=== PATIENT | female | born 1990 | race Caucasian/White ===

== ENCOUNTER 2016-08-08 19:10 | Emergency (ER) | payer BC ==
[2016-08-08] MEDS ORDERED: SODIUM CHLORIDE 0.9% 1,000 ML IV STA (19:34)
[2016-08-08] MEDS ORDERED: METOCLOPRAMIDE 5 MG/ML 2 ML VIAL IVP STA (19:34)
[2016-08-08] MEDS ORDERED: SODIUM CHLORIDE 0.9% 500 ML IV STA (19:34)
--- NOTE | 2016-08-08 19:42 | ED ---
General Adult HPI - General Chief complaint: Headache Stated complaint: Fever/Vomiting Time Seen by Provider: 08/08/16 19:23 Source: patient, family, RN notes reviewed Mode of arrival: wheelchair Limitations: no limitations - History of Present Illness Initial comments: Chief complaint and history of present illness a 26-year-old female complaint of posterior headache ongoing since earlier today. Nausea no vomiting. She had diarrhea yesterday. Patient reports she has to migraine type headaches a month usually due to stress because of the job. 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 Patient denies any further. Patient states she had a positive home test and thinks she is 5 weeks . Yesterday she had some spotting. - Related Data Home Medications Medication Instructions Recorded Confirmed Pnv with Ca,No.72/Iron/FA 1 tab PO DAILY 08/08/16 08/08/16 [ Plus Tablet] Allergies Allergy/AdvReac Type Severity Reaction Status Date / Time No Known Allergies Allergy Verified 08/08/16 19:31 Review of Systems ROS Statement: Those systems with pertinent positive or pertinent negative responses have been documented in the HPI. Review of systems patient has headache but no photophobia. Nausea no vomiting no stiff neck. No chest pain or shortness of breath. The patient had left lower quadrant discomfort earlier today she had small amount of spotting vaginally yesterday. She states she thinks is 5 weeks had a positive home test. Diarrhea yesterday. Nausea but not vomiting. All systems reviewed. Past problems 2 para 11 miscarriage. The patient's family history cancers include cervical, breast and lung and kidney. Patient surgeries include 1 she's had breast augmentation and a D&C. Otherwise denies any other medical problems other than twice monthly migraine type headaches. She really takes Tylenol for these. Patient denies ALLERGIES nonsmoker nondrinker. ROS Other: All systems not noted in ROS Statement are negative. Past Medical History Additional Past Medical History / Comment(s): born with only 1 kidney History of Any Multi-Drug Resistant Organisms: None Reported Past Surgical History: Section Additional Past Surgical History / Comment(s): d & c breast augmentation Past Psychological History: No Psychological Hx Reported Smoking Status: Never smoker Past Alcohol Use History: None Reported Past Drug Use History: None Reported General Exam - General Exam Comments Initial Comments: General: The patient is awake and alert, complaining of a posterior occipital area headache. With nausea no vomiting. Vital signs show temperature 98.9 pulse 82 respiratory rate 16 pulse ox 90% room air blood pressure 140/70 Eye: Pupils are equal, round and reactive to light, extra-ocular movements are intact ; there is normal conjunctiva bilaterally. No signs of icterus. Ears, nose, mouth and throat: There are moist mucous membranes and no oral lesions. Neck: The neck is supple, there is no tenderness . No meningeal irritation no meningismus.. Cardiovascular: There is a regular rate and rhythm. No murmur, rub or gallop is appreciated. Respiratory: Lungs are clear to auscultation, respirations are non-labored, breath sounds are equal. No wheezes, stridor, rales, or rhonchi. Gastrointestinal: Soft, non-distended, non-tender abdomen without masses or organomegaly noted. There is no rebound or guarding present. No CVA tenderness. Bowel sounds are unremarkable. Patient had left lower quadrant discomfort earlier today and states she had a small amount of vaginal bleeding yesterday spotting. Back: There is no tenderness to palpation in the midline. There is no obvious deformity. No rashes noted. Musculoskeletal: Normal ROM, no tenderness, There is no pedal edema. There is no calf tenderness or swelling. Sensation intact. Pulses equal bilaterally 2+. Neurological: No evidence or complaints of any neuro deficits. Skin: Skin is warm and dry and no rashes or lesions are noted. Limitations: no limitations Course Vital Signs 08/08/16 08/08/16 19:15 21:30 Temperature 98.9 F 97.9 F Pulse Rate 82 Respiratory 16 Rate Blood Pressure 140/70 O2 Sat by Pulse 98 Oximetry Medical Decision Making - Medical Decision Making The patient's urine is clean no signs of infection. Influenza AB test reported to be negative by laboratory. Vaginal examination done with the help of broke. Cervix is closed, no blood noted. No adnexal tenderness. At this time the patient has decided not to have an ultrasound. She will be following up with her GEOMORPHOLOGIST shortly. We discussed the significance of a positive beta. Vaginal examination did not reveal any blood on the osseous closed. No pain in the left adnexa at this time. Possibility of miscarriage or threatened miscarriage and/or ectopic was discussed with the patient. Ultrasound offered patient declined states she'll have this done with her GEOMORPHOLOGIST. She thinks a discomfort to the left lower quadrant was due to her being busy at work and extra effort being put into her job. We discussed threatened miscarriage or incomplete but again no blood was noted in the vault and just slightly pink at the cervical os - Lab Data Lab Results 08/08/16 08/08/16 08/08/16 Range/Units 19:50 20:10 21:25 HCG, Quant 3324.0 mIU/mL Urine Color Light Yellow Urine Appearance Clear (Clear) Urine pH 6.5 (5.0-8.0) Ur Specific [place] 1.004 (1.001-1.035) Urine Protein Negative (Negative) Urine Glucose (UA) Negative (Negative) Urine Ketones 1+ H (Negative) Urine Blood Negative (Negative) Urine Nitrate Negative (Negative) Urine Bilirubin Negative (Negative) Urine Urobilinogen <2.0 (<2.0) mg/dL Ur Leukocyte Esterase Negative (Negative) Influenza Type A RNA Not Detected (Not Detectd) Influenza Type B (PCR) Not Detected (Not Detectd) Disposition Clinical Impression: Headache, First trimester Disposition: HOME SELF-CARE Condition: Fair Instructions: Acute Headache (ED), (ED) Referrals: Henry Chung MD [Primary Care Provider] - 1-2 days Time of Disposition: 22:11
[2016-08-08 20:31] LABS: Appearance,Urine Clear (Clear); Bilirubin,Urine Negative (Negative); Glucose,Urine (UA) Negative (Negative); Ketones,Urine 1+ (Negative); Leukocyte Esterase,Urine Negative (Negative); Nitrite,Urine Negative (Negative); PH, Urine 6.5 (5.0-8.0); Protein,Urine Negative (Negative); Specific Gravity,Urine 1.004 (1.001-1.035); UA Billing (MACRO vs. MICRO) CHEM; Urobilinogen,Urine <2.0 mg/dL (<2.0)
[2016-08-08 21:32] VITALS: TEMP 97.9
[2016-08-08 22:29] VITALS: BP 128/70; PULSE 70; RESP 14
== END 2016-08-08 22:27 | disposition home or self-care (01) ==
LOC: EC 19:10
DX: O99.89 Other specified diseases and conditions complicating pregnancy, childbirth and the puerperium (principal); R51 Headache; R11.0 Nausea; R19.7 Diarrhea, unspecified; Z3A.01 Less than 8 weeks gestation of pregnancy; Z79.899 Other long term (current) drug therapy
CPT/HCPCS: 36415; 81003; 84702; 87502; 99283; 96374; 96361 ×2; J2765

== ENCOUNTER 2017-01-09 14:32 | Outpatient (CLI) | payer OTHER, BC ==
[2017-01-09 14:52] LABS: Appearance,Urine Clear (Clear); Bilirubin,Urine Negative (Negative); Glucose,Urine (UA) Negative (Negative); Ketones,Urine Negative (Negative); Leukocyte Esterase,Urine Negative (Negative); Nitrite,Urine Negative (Negative); PH, Urine 6.5 (5.0-8.0); Protein,Urine Negative (Negative); Specific Gravity,Urine 1.003 (1.001-1.035); UA Billing (MACRO vs. MICRO) CHEM; Urobilinogen,Urine <2.0 mg/dL (<2.0)
[2017-01-09 15:39] VITALS: BP 124/78; PULSE 76; RESP 16; TEMP 97.6
--- NOTE | 2017-01-09 18:48 | P.MSEPDOC ---
Presenting Problems - Arrival Data Date of Arrival on Unit: 01/09/17 Time of Arrival on Unit: 14:18 Mode of Transport: Wheelchair - Complaint OB-Reason for Admission/Chief Complaint: Pain Comment: lower abd, shooting pain Medical History - Information : 4 Para: 1 Term: 1 : 0 Abortions: Spontaneous or Elective: 0 Number of Living Children: 1 - Gestational Age Expected Date of Delivery: 04/09/17 Gestational Age by ELIAS (wks/days): 27 Weeks and 1 Days - History Complications: Prior Review of Systems - Review of Systems Constitutional: No problems Breast: No problems ENT: No problems Cardiovascular: No problems Respiratory: No problems Gastrointestinal: No problems Genitourinary: No problems Musculoskeletal: No problems Neurological: No problems Skin: No problems Vital Signs - Temperature Temperature: 97.6 F Temperature Source: Temporal Artery Scan - Pulse Right Sitting Brachial Pulse Rate: 76 Pulse Assessment Method: Automatic Cuff - Respirations Respiratory Rate: 16 Oxygen Delivery Method: Room Air O2 Sat by Pulse Oximetry: 98 - Blood Pressure Right Arm Sitting Blood Pressure: 124/78 Blood Pressure Mean: 93 Blood Pressure Source: Automatic Cuff Medical Screen Scoring (Pre) - Cervical Exam Dilation: Exam Deferred Effacement: Exam Deferred Membranes: Intact - Uterine Contractions Frequency: N/A Duration: N/A Intensity: N/A - Maternal Vital Signs Maternal Temperature: N/A Maternal Blood Pressure: N/A Maternal Respirations: N/A - Maternal Trauma Maternal Trauma: N/A - Assessment Baseline FHR: 150 Heart Rate - NICHD Category: Category I (Normal) = 0 Position: N/A Station: N/A - Total Score Total Score (Pre): 0 - Level of Risk Level of Risk: N/A Physician Notification (Pre) - Physician Notified Physician Notified Date: 01/09/17 Physician Notified Time: 14:41 Physician/Practitioner Notifed:: dr roach New Order Received: Yes Disposition - Disposition Discharge Date: 01/09/17 Discharge Time: 15:26 I agree with the RN Medical Screening Exam: Yes Risk & Benefit of care provided described in d/c instruction: No Risk & Benefit of Care Comment: No documentation of discharge instructions. 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 Diagnosis: 27 WEEKS GESTATION OF
== END 2017-01-09 15:26 | disposition home or self-care (01) ==
LOC: FBPOP 14:32
PROVIDERS: ATTEND Obstetrics & Gynecology
DX: O99.89 Other specified diseases and conditions complicating pregnancy, childbirth and the puerperium (principal); R10.30 Lower abdominal pain, unspecified; Z3A.27 27 weeks gestation of pregnancy
CPT/HCPCS: 81003; G0463; 99213

== ENCOUNTER 2017-05-21 23:10 | Inpatient (IN) | payer MEDICAID, OTHER ==
--- NOTE | 2017-05-21 23:34 | ED ---
General Adult HPI - General Chief complaint: Psychiatric Symptoms Stated complaint: Time Seen by Provider: 05/21/17 23:25 Source: patient, RN notes reviewed Mode of arrival: ambulatory Limitations: no limitations - History of Present Illness Initial comments: 26 yo female presents emergency Department was about 2 months presents with depression and suicidal thoughts. She states that it on and off depending on the day. She has thoughts of hurting herself. She states that she will have dreams about what to do. This time she does not have a specific plan. Patient states this is her second she had no complications with her first . She states the child has had some issues gaining weight and was born premature. She denies any health concerns. Patient denies any recent fever, chills, shortness of breath, chest pain, back pain, abdominal pain, nausea vomiting, numbness or tingling, dysuria or hematuria, constipation or diarrhea, headaches or visual changes, or any other current symptoms. - Related Data Home Medications Medication Instructions Recorded Confirmed Pnv,Calcium 72/Iron/Folic Acid 1 tab PO DAILY 08/08/16 01/09/17 [ Plus Tablet] Allergies Allergy/AdvReac Type Severity Reaction Status Date / Time No Known Allergies Allergy Verified 05/21/17 23:24 Review of Systems ROS Statement: Those systems with pertinent positive or pertinent negative responses have been documented in the HPI. ROS Other: All systems not noted in ROS Statement are negative. Past Medical History Additional Past Medical History / Comment(s): born with only 1 kidney History of Any Multi-Drug Resistant Organisms: None Reported Past Surgical History: Section Additional Past Surgical History / Comment(s): d & c breast augmentation Past Psychological History: No Psychological Hx Reported Smoking Status: Never smoker Past Alcohol Use History: None Reported Past Drug Use History: None Reported General Exam Limitations: no limitations General appearance: alert, in no apparent distress Neck exam: Present: normal inspection. Absent: tenderness, meningismus, lymphadenopathy Respiratory exam: Present: normal lung sounds bilaterally. Absent: respiratory distress, wheezes, rales, rhonchi, stridor Cardiovascular Exam: Present: regular rate, normal rhythm, normal heart sounds. Absent: systolic murmur, diastolic murmur, rubs, gallop, clicks Neurological exam: Present: alert, oriented X3 Psychiatric exam: Present: depressed, suicidal ideation. Absent: homicidal ideation Skin exam: Present: warm, dry, intact, normal color. Absent: rash Course Vital Signs 05/21/17 23:20 Temperature 98.5 F Pulse Rate 77 Respiratory 18 Rate Blood Pressure 182/87 O2 Sat by Pulse 99 Oximetry Medical Decision Making - Medical Decision Making 26-year-old female presents to the emergency department with a chief complaint of suicidal ideation and concern for depression. At this time the patient is cleared to be evaluated by psychiatry. At this time the patient has been evaluated and they are recommending admission. This time patient will be admitted for psychiatric care. Patient is agreement this plan. Disposition Clinical Impression: Depression Disposition: TRANSFER TO PSYCH HOSP/UNIT Referrals: None,Stated [Primary Care Provider] - 1-2 days
[2017-05-22] MEDS ORDERED: LORazepam 1 MG TAB PO PRN (03:14)
[2017-05-22] MEDS ORDERED: MAGNESIUM HYDROXIDE 2,400 MG/10 ML CUP PO PRN (03:14)
[2017-05-22] MEDS ORDERED: ACETAMINOPHEN TAB 325 MG TAB PO PRN (03:14)
[2017-05-22] MEDS ORDERED: MAG HYDROX/AL HYDROX/SIMETH 30 ML CUP PO PRN (03:14)
--- NOTE | 2017-05-22 03:45 | P.MDCNMH ---
History of Present Illness H&P Date: 05/22/17 Chief Complaint: Depression with suicidal thoughts 26 yo female presents emergency Department was about 2 months presents with depression and suicidal thoughts. She states that it on and off depending on the day. She has thoughts of hurting herself. She states that she will have dreams about what to do and other dreams about a car running over her son. She does not have a specific plan for suicide at this point in time. Patient states this only happened during her second and she had no complications with her first . She states the second child was born premature and has had some issues gaining weight since he was born. Patient did not have any issues with anxiety and depression before the second and she never took any medicine for any of this condition. She denies any other health concerns. No recent illness, no cough no shortness of breath, no pain, no urinary symptoms, no diarrhea or nausea or vomiting. Review of Systems 12 point review of system was performed, negative except for HPI Past Medical History Past Medical History: No Reported History (No history of depression or anxiety in the family) Additional Past Medical History / Comment(s): born with only 1 kidney History of Any Multi-Drug Resistant Organisms: None Reported Past Surgical History: Section Additional Past Surgical History / Comment(s): d & c breast augmentation Smoking Status: Never smoker Medications and Allergies Home Medications Medication Instructions Recorded Confirmed Type Pnv,Calcium 72/Iron/Folic Acid 1 tab PO DAILY 08/08/16 01/09/17 History [ Plus Tablet] Allergies Allergy/AdvReac Type Severity Reaction Status Date / Time No Known Allergies Allergy Verified 05/21/17 23:24 Physical Exam Vitals: Vital Signs Temp Pulse Resp BP Pulse Ox 05/21/17 23:20 98.5 F 77 18 182/87 99 Intake and Output 05/21/17 05/21/17 05/22/17 14:59 22:59 06:59 Other: Weight 64.41 kg Patient Weight 05/22/17 06:59 Weight 64.41 kg Constitutional: No acute distress, conversant, pleasant Eyes:Anicteric sclerae, moist conjunctiva, no lid-lag, PERRLA, ENMT: Oropharynx clear, no erythema, exudates Neck: Supple, FROM, no masses, or JVD, No carotid bruits, No thyromegaly Lungs: Clear to auscultation, Clear to percussion, Normal respiratory effort, no accessory muscle use Cardiovascular: Heart regular in rate and rhythm, No murmurs, gallops, or rubs, No peripheral edema Abdominal: Soft, Nontender, no guarding, rebound or rigidity, Normoactive bowel sounds, No hepatomegaly, No splenomegaly, No palpable mass Skin: Normal temperature, tone, texture, turgor, no induration, No subcutaneous nodules, No rash, lesions, No ulcers Extremities: No digital cyanosis, No clubbing, Pedal pulses intact and symmetrical, Radial pulses intact and symmetrical, No calf tenderness Psychiatric: Alert and oriented to person, place and time, appropriate affect, intact judgement Neuro: Muscles Strength 5/5 in all 4 extremities, Sensation to light touch grossly present throughout, Cranial nerves II-XII grossly intact, no focal sensory deficits Cranial Nerve Examination - Cranial Nerves Cranial Nerve II- Optic: Intact Cranial Nerve III- Oculomotor: Intact Cranial Nerve IV- Trochlear: Intact Cranial Nerve V- Trigeminal: Intact Cranial Nerve - Abducens: Intact Cranial Nerve VII- Facial: Intact Cranial Nerve VIII- Auditory: Intact Cranial Nerve IX- Glossopharyngeal: Intact Cranial Nerve X- Vagus: Intact Cranial Nerve XI- Accessory: Intact Cranial Nerve XII- Hypoglossal: Intact Assessment and Plan Plan: #1 Suicidal thoughts, severe depression and anxiety symptoms, likely depression: Management per psychiatry Suicide precautions #2 health-maintenance: No indication for any medical testing or treatment at this point
[2017-05-22 03:46] VITALS: BMI 25.5
[2017-05-22 08:27] LABS: Basophils % (A) 1 %; CH 29.4; CHCM 33.5; Eosinophils # (A) 0.1 k/uL (0-0.7); Eosinophils % (A) 2 %; HCT 39.3 % (34.0-46.0); HDW 2.57; Luc # (Auto) 0.15; Luc % (Auto) 2; Lymphocytes # (A) 2.7 k/uL (1.0-4.8); Lymphocytes % (A) 39 %; MCH 29.1 pg (25.0-35.0); MCHC 33.1 g/dL (31.0-37.0); MCV 87.9 fL (80.0-100.0); Mean Platelet Volume 7.1; Monocytes # (A) 0.4 k/uL (0-1.0); Monocytes % (A) 5 %; Neutrophils # (A) 3.6 k/uL (1.3-7.7); Neutrophils % (A) 52 %; RBC 4.47 m/uL (3.80-5.40); RDW 13.2 % (11.5-15.5); WBC (Perox) 7.09
[2017-05-22 08:34] LABS: ALT 29 U/L (9-52); AST 17 U/L (14-36); Alkaline Phosphatase 58 U/L (38-126); Anion Gap 9 mmol/L; Blood Urea Nitrogen 11 mg/dL (7-17); Calcium 9.5 mg/dL (8.4-10.2); Carbon Dioxide 24 mmol/L (22-30); Chloride 107 mmol/L (98-107); Glucose 77 mg/dL (74-99); Non-African American GFR(MDRD) >60 (>60 ml/min/1.73 sqM); Potassium 3.9 mmol/L (3.5-5.1); Sodium 140 mmol/L (137-145); Total Bilirubin 0.6 mg/dL (0.2-1.3)
[2017-05-22] MEDS: PRENATAL VIT-IRON-FOLIC ACID 1 EACH CAP PO SCH (12:19)
[2017-05-22] MEDS ORDERED: SERTRALINE 50 MG TAB PO SCH (16:00)
--- NOTE | 2017-05-22 16:08 | P.HP ---
Psychiatric H&P - . H&P Date: 05/22/17 History & Physical: Allergies Allergy/AdvReac Type Severity Reaction Status Date / Time No Known Allergies Allergy Verified 05/22/17 07:50 Vital Signs Temp 97.1 F L 05/22/17 03:38 Pulse 79 05/22/17 03:38 Resp 16 05/22/17 03:38 BP 128/83 05/22/17 03:38 Pulse Ox 99 05/22/17 03:38 Intake & Output 05/21/17 05/22/17 05/22/17 18:59 06:59 18:59 Weight 65.516 kg Laboratory Last Values WBC 7.0 k/uL (3.8-10.6) 05/22/17 07:37 RBC 4.47 m/uL (3.80-5.40) 05/22/17 07:37 Hgb 13.0 gm/dL (11.4-16.0) 05/22/17 07:37 Hct 39.3 % (34.0-46.0) 05/22/17 07:37 MCV 87.9 fL (80.0-100.0) 05/22/17 07:37 MCH 29.1 pg (25.0-35.0) 05/22/17 07:37 MCHC 33.1 g/dL (31.0-37.0) 05/22/17 07:37 RDW 13.2 % (11.5-15.5) 05/22/17 07:37 Plt Count 291 k/uL (150-450) 05/22/17 07:37 Neutrophils % 52 % 05/22/17 07:37 Lymphocytes % 39 % 05/22/17 07:37 Monocytes % 5 % 05/22/17 07:37 Eosinophils % 2 % 05/22/17 07:37 Basophils % 1 % 05/22/17 07:37 Neutrophils # 3.6 k/uL (1.3-7.7) 05/22/17 07:37 Lymphocytes # 2.7 k/uL (1.0-4.8) 05/22/17 07:37 Monocytes # 0.4 k/uL (0-1.0) 05/22/17 07:37 Eosinophils # 0.1 k/uL (0-0.7) 05/22/17 07:37 Basophils # 0.0 k/uL (0-0.2) 05/22/17 07:37 Sodium 140 mmol/L (137-145) 05/22/17 07:37 Potassium 3.9 mmol/L (3.5-5.1) 05/22/17 07:37 Chloride 107 mmol/L (98-107) 05/22/17 07:37 Carbon Dioxide 24 mmol/L (22-30) 05/22/17 07:37 Anion Gap 9 mmol/L 05/22/17 07:37 BUN 11 mg/dL (7-17) 05/22/17 07:37 Creatinine 0.69 mg/dL (0.52-1.04) 05/22/17 07:37 Est GFR (MDRD) Af Amer >60 (>60 ml/min/1.73 sqM) 05/22/17 07:37 Est GFR (MDRD) Non-Af >60 (>60 ml/min/1.73 sqM) 05/22/17 07:37 Glucose 77 mg/dL (74-99) 05/22/17 07:37 Calcium 9.5 mg/dL (8.4-10.2) 05/22/17 07:37 Total Bilirubin 0.6 mg/dL (0.2-1.3) 05/22/17 07:37 AST 17 U/L (14-36) 05/22/17 07:37 ALT 29 U/L (9-52) 05/22/17 07:37 Alkaline Phosphatase 58 U/L (38-126) 05/22/17 07:37 Total Protein 7.0 g/dL (6.3-8.2) 05/22/17 07:37 Albumin 4.2 g/dL (3.5-5.0) 05/22/17 07:37 TSH 1.410 mIU/L (0.465-4.680) 05/22/17 07:37 05/22/17 15:51 IDENTIFYING DATA: 26-year-old female patient HPI: Patient admitted to the inpatient psychiatric unit [facility] on a voluntary basis. She was admitted with depression and concern regarding thoughts of suicide. She says she's had depression since her second son was born. She says it was a traumatic because she had preeclampsia and dumb had an emergency at 37 weeks. She reports that she was not able to go to her counseling is frequently and over the last week or so she's had increased depression on her she's felt depressed daily and minimal interest in things. She says even things like doing the dishes seemed overwhelming to her and she just feels blah and feels like a mitchell blob. She denies thoughts of harm to herself or thoughts of suicide but did imagine herself and also has been having dreams of her oldest son being hit by a car. She denies having had actual thoughts about being better off gone. She said she's had a hard time even functioning. She says another stressor is that she had to stop breast-feeding because her son was not gaining weight. Another stressor was that they had recently moved and she was 6-1/2 months and was placed on bedrest for their houses not totally in place and also that she had dog found out after she had her baby that her boyfriend had cheated on her. She says things currently in the relationship are going well overall. PAST PSYCHIATRIC HISTORY: She did not have any depression after her first child, no history of depression. She has been recently going to outpatient [facility] [place]. She has never taken any antidepressants. She does admit to some history of social anxiety as well as recently increased worry. She denies any history of suicide attempts. PMH: Her first delivery she also had preeclampsia. Preeclampsia with the second with the emergency ALLERGIES: No known ALLERGIES MEDICATIONS: Tylenol when necessary, Maalox when necessary, Ativan when necessary, milk of magnesia when necessary, vitamin CHEMICAL DEPENDENCY HISTORY: Denies FAMILY PSYCHIATRIC HISTORY: Denies FAMILY CHEMICAL DEPENDENCY HISTORY: None known at this time SOCIAL HISTORY: This is her second child. She currently lives with her boyfriend, 2 years relationship. First son is from her first marriage which ended in divorce. MENTAL STATUS EXAM: She is alert and cooperative with the interview. Her speech is fluent, not rapid or pressured. Thought processes are organized. Her mood is described as "good." She has positive thoughts towards her baby. She denies any thoughts of harm to her children or anyone. She denies any suicidal ideations. No evidence of psychosis. She cognitively appears to be grossly intact. I do not notice any memory disturbance or disorientation. Insight is adequate, judgment shows evidence of some recent impairment. STRENGTHS/WEAKNESSES: Strengths-support system, seeking treatment; weaknesses- coping skills INTELLECTUAL FUNCTIONING: Average IMPRESSIONS: Major depressive disorder single episode; social anxiety disorder; rule out generalized anxiety disorder PLAN: Patient is admitted to the inpatient psychiatric unit [facility] on a voluntary basis. She is placed on SP 15 minute precautions. She' ll participate group and activity therapies. Baseline laboratory workup will be done the patient medical consultation will be ordered. I will initiate her on Zoloft 50 more grams daily to help with depression and anxiety symptoms. We will look into support systems. Estimated length of stay will be 3-5 days. Prognosis is guarded.
[2017-05-22 18:11] LABS: Appearance,Urine Cloudy (Clear); Bilirubin,Urine Negative (Negative); Glucose,Urine (UA) Negative (Negative); Ketones,Urine Negative (Negative); Leukocyte Esterase,Urine Small (Negative); Mucus,Urine Occasional /hpf; Nitrite,Urine Negative (Negative); Particle Count 9371; Protein,Urine Trace (Negative); RBC,Urine 4 /hpf (0-5); Specific Gravity,Urine 1.019 (1.001-1.035); Squamous Epithelial Cell,Urine 9 /hpf (0-4); UA Billing (MACRO vs. MICRO) MICRO; Urobilinogen,Urine <2.0 mg/dL (<2.0); WBC,Urine 4 /hpf (0-5)
[2017-05-23 08:38] LABS: Appearance,Urine Cloudy (Clear); Bilirubin,Urine Negative (Negative); Glucose,Urine (UA) Negative (Negative); Ketones,Urine 1+ (Negative); Leukocyte Esterase,Urine Negative (Negative); Mucus,Urine Many /hpf; Nitrite,Urine Negative (Negative); Particle Count 17690; Protein,Urine 1+ (Negative); Specific Gravity,Urine 1.024 (1.001-1.035); Squamous Epithelial Cell,Urine 1 /hpf (0-4); UA Billing (MACRO vs. MICRO) MICRO; Urobilinogen,Urine <2.0 mg/dL (<2.0)
[2017-05-23] MEDS: PRENATAL VIT-IRON-FOLIC ACID 1 EACH CAP PO SCH (13:02)
[2017-05-23] MEDS: SERTRALINE 50 MG TAB PO SCH (13:03)
--- NOTE | 2017-05-23 15:05 | P.PN ---
Progress Note - Text Progress Note Date: 05/23/17 26yo CF admitted on 05/22/17 due worsening depression and suspected depression Last 24hrs: Patient states that "today I feel good". She appears to be in a good mood and with broad affect. Patient attributes this to her group attendance and realizing that other people are going through similar problems as she. Pt has been sleeping well on the unit. Denies SI and states that she has never had intent or plan of killing herself. Also denies thoughts of . States that that one instance of visualizing herself drowning scared her and her boyfriend, which is what prompted her presentation at the ED. She denies feelings of hopelessness. Some guilt about not being as present with her as she was with her first born. Does identify exercise as a positive outlet for her and has lately been having to force herself to go. States that she stopped seeing her therapist ~1 month ago due to problems with her insurance and feels that this was a major factor in her mood declining. On admission patient was found to have a (+) urine HCG; therefore a serum HCG was completed and her levels came back elevated >1000. OB services were consulted and reviewed her records; they confirmed that patient was indeed and recommended that her primary team inform her of the news. I did speak with patient and informed her that she is and she took the news well. She plans to f/u with her outpatient OB following discharge. MSE: Pt is alert and cooperative with the interview. Her speech is fluent with normal rate and volume. Thought processes are organized. Her mood is euthymic and affect broad. She has positive thoughts towards her children and unborn baby. She denies any thoughts of harm to her children or anyone. She denies any suicidal ideations. No evidence of psychosis. She cognitively appears to be grossly intact. I do not notice any memory disturbance or disorientation. Insight is adequate, judgment shows evidence of some recent impairment. ASSESSMENT: 1. Major depressive disorder, single episode with peripartum onset 2. h/o social anxiety disorder 3. r/o generalized anxiety disorder PLAN: patient's Zoloft was initially held this morning due to findings of (+) HCG. I did discuss the risks associated with use of SSRIs in , especially regarding use in third trimester. Patient vocalized understanding. She would like to stay on Zoloft for now to help with improvement in mood. Plans to discuss this further with her OB following discharge. Will continue Zoloft 50mg daily. Continue to monitor for safety. Encourage participation in group activities on the unit. Discuss discharge planning with treatment team. Possible DC on Tuesday.
[2017-05-24] MEDS: SERTRALINE 50 MG TAB PO SCH (08:33)
[2017-05-24] MEDS: PRENATAL VIT-IRON-FOLIC ACID 1 EACH CAP PO SCH (11:16)
--- NOTE | 2017-05-24 15:12 | P.PN ---
Subjective Progress Note Date: 05/24/17 Principal diagnosis: elevated HCG Patient is a 26-year-old female being seen in the mental health unit secondary to elevated hCG levels. Patient recently to her son approximately 8 weeks ago. She had a emergency secondary to preeclampsia. She reports that she stopped breast-feeding approximately 3 weeks ago and had one menstrual cycle. She has had sexual intercourse since that time. She had a urine hCG checked on admission which was positive. Serum hCG checked on 111 was 1175 and it approximately doubled in a 24-hour period to 2524.7. However yesterday she had some dark lightheaded and then subsequently had bright red blood one gush so approximately one pad. Since that point in time she has not had any bleeding. She reports that her period ended approximately one week ago. Objective - Vital Signs Vital signs: Vital Signs Temp 98.2 F 05/24/17 06:52 Pulse 69 05/24/17 06:52 Resp 14 05/24/17 06:52 BP 118/87 05/24/17 06:52 Pulse Ox 99 05/22/17 03:38 - Exam General: non toxic, no distress, appears at stated age Head: atraumatic, normocephalic, symmetric Eyes: EOMI, no lid lag, anicteric sclera Cardiovascular: S1S2 reg, no murmur, positive posterior tibial pulse bilateral, Lungs: CTA bilateral, no rhonchi, no rales , no accessory muscle use Psych: Alert, oriented, appropriate affect - Labs CBC & Chem 7: 05/22/17 07:37 05/22/17 07:37 Assessment and Plan Assessment: Elevated serum hCG level with uterine bleeding -Suspect threatened with spontaneous bleeding versus abnormal elevation of HCG -Discussed with nursing and she will have an appointment with her primary OB tomorrow Friday 05/25 at 10:30 in the morning for follow-up care. - Will need serial HCG levels. - monitor for recurrence of bleeding Nicotine for allowing us to participate in the care of this pleasant young female.
--- NOTE | 2017-05-24 23:14 | P.PN ---
Progress Note - Text Progress Note Date: 05/24/17 26yo CF admitted on 05/22/17 due worsening depression and suspected depression Last 24hrs: Patient states that her mood is "great". She has continued to attend and actively participate in group sessions on the unit. Last night she experienced some vaginal bleeding and their was some concern of possible miscarriage. OB was consulted and informed staff that their would be no further intervention needed if patient was in fact experiencing a miscarriage. She states bleeding has since stopped. Was seen by medical team today and according to staff there was some concern of possible retention of placenta fragments causing bleeding. Recommendation for patient to f/u with her OB-INTELLIGENCE AGENT as soon as possible and an appointment was made for tomorrow afternoon. Pt informed of this and in agreement with plan. No other reported complaints. MSE: Pt is alert and cooperative with the interview. Her speech is fluent with normal rate and volume. Thought processes are organized. Her mood is euthymic and affect broad. She denies any thoughts of harm to her children or anyone. She denies any suicidal ideations. No evidence of psychosis. She cognitively appears to be grossly intact. I do not notice any memory disturbance or disorientation. Insight is adequate, judgment shows evidence of some recent impairment. ASSESSMENT: 1. Major depressive disorder, single episode with peripartum onset 2. h/o social anxiety disorder 3. r/o generalized anxiety disorder PLAN: Continue Zoloft 50mg daily. Continue to monitor for safety. Encourage participation in group activities on the unit. Family meeting planned for this afternoon with her boyfreind. Plan DC tomorrow morning and f/u with OB-INTELLIGENCE AGENT that afternoon as scheduled.
[2017-05-25 07:20] VITALS: BP 112/65; PULSE 74; RESP 16; TEMP 98.8
[2017-05-25] MEDS: SERTRALINE 50 MG TAB PO SCH (08:53)
[2017-05-25] MEDS ORDERED: SERTRALINE 50 MG TAB PO SCH ×2 (09:00→23:59)
--- NOTE | 2017-05-25 09:11 | P.PN ---
Progress Note - Text Progress Note Date: 05/25/17 26yo CF admitted on 05/22/17 due worsening depression and suspected depression Last 24hrs: Patient states continued good mood and has bright affect. She has continued to attend and actively participate in group sessions on the unit. No more reported vaginal bleeding. Slept well last night. Compliant with medication and no reported adverse effects. Denies SI at this time. MSE: Pt is alert and cooperative with the interview. Her speech is fluent with normal rate and volume. Thought processes are organized. Her mood is euthymic and affect broad. She denies any thoughts of harm to her children or anyone. She denies any suicidal ideations. No evidence of psychosis. She cognitively appears to be grossly intact. I do not notice any memory disturbance or disorientation. Insight is adequate, judgment shows evidence of some recent impairment. ASSESSMENT: 1. Major depressive disorder, single episode with peripartum onset 2. h/o social anxiety disorder 3. r/o generalized anxiety disorder PLAN: Continue Zoloft 50mg daily. DC this morning. Patient to f/u with her OB- MAINTENANCE FITTER as scheduled at 1:15pm. Also, planning to re-establish care with her therapist Evelia and an appointment has been scheduled.
== END 2017-05-24 12:03 | disposition home or self-care (01) | DRG 754 ==
LOC: EC 23:10 → 3MHU 05-22 02:56
PROVIDERS: ADMIT Psychiatry & Neurology Psychiatry; ATTEND Psychiatry & Neurology Psychiatry
DX: F32.9 Major depressive disorder, single episode, unspecified (principal); R45.851 Suicidal ideations; F40.10 Social phobia, unspecified
CPT/HCPCS: 80053; 80306; 81001; 81025; 82075; 84443; 84702; 85025; 99285

== ENCOUNTER → 2020-01-01 | Outpatient (CLI) | payer BC | END | disposition home or self-care (01) | LOC: LABWHC1 09:00 | PROVIDERS: ATTEND Family Medicine | DX: R50.9 Fever, unspecified (principal) ==

== ENCOUNTER → 2021-01-19 | Outpatient (CLI) | payer BC ==
[2021-01-19 18:58] LABS: Basophils # (A) 0.09 X 10*3/uL (0.00-0.10); Basophils % (A) 1.1 %; Eosinophils # (A) 0.05 X 10*3/uL (0.04-0.35); Eosinophils % (A) 0.6 %; HCT 41.8 % (37.2-46.3); HGB 13.6 g/dL (12.0-15.0); Lymphocytes # (A) 2.71 X 10*3/uL (0.90-5.00); Lymphocytes % (A) 33.5 %; MCH 29.6 pg (27.0-32.0); MCHC 32.5 g/dL (32.0-37.0); MCV 90.9 fL (80.0-97.0); Mean Platelet Volume 10.7 fL (9.5-12.2); Monocytes # (A) 0.47 X 10*3/uL (0.20-1.00); Monocytes % (A) 5.8 %; Neutrophils # (A) 4.72 X 10*3/uL (1.80-7.70); Neutrophils % (A) 58.3 %; Platelet Count 298 X 10*3/uL (140-440); RDW 12.2 % (11.5-14.5)
[2021-01-19 19:41] LABS: African American GFR (CKD) 141.8 (60.0-200.0); Albumin 4.8 g/dL (3.80-4.90); Anion Gap 8.8 mmol/L (4.00-12.00); BUN/Creat Ratio 31.67 Ratio (12.00-20.00); Calcium 9.3 mg/dL (8.7-10.3); Carbon Dioxide 27.2 mmol/L (21.6-31.8); Globulin 2.4 g/dL (1.6-3.3); Non-African American GFR(CKD) 122.3 (60.0-200.0); Potassium 3.9 mmol/L (3.5-5.5); Total Bilirubin 0.4 mg/dL (0.3-1.2); Total Protein 7.2 g/dL (6.2-8.2)
== END | disposition home or self-care (01) ==
LOC: LABWHC1 11:38
PROVIDERS: ATTEND Obstetrics & Gynecology
DX: Z01.812 Encounter for preprocedural laboratory examination (principal); Z20.822 Contact with and (suspected) exposure to COVID-19; N87.9 Dysplasia of cervix uteri, unspecified
CPT/HCPCS: 80053; 85025; 36415; U0003; U0005

== ENCOUNTER → 2021-02-03 | Outpatient (CLI) | payer BC ==
[2021-02-03 14:45] LABS: HCT 45.2 % (37.2-46.3); HGB 14.4 g/dL (12.0-15.0); MCH 28.9 pg (27.0-32.0); MCHC 31.9 g/dL (32.0-37.0); MCV 90.6 fL (80.0-97.0); Mean Platelet Volume 10.5 fL (9.5-12.2); Platelet Count 307 X 10*3/uL (140-440); RBC 4.99 X 10*6/uL (4.10-5.20); WBC 5.47 X 10*3/uL (4.50-10.00)
== END | disposition home or self-care (01) ==
LOC: LABWHC1 10:00
PROVIDERS: ATTEND Obstetrics & Gynecology
DX: N93.9 Abnormal uterine and vaginal bleeding, unspecified (principal)
CPT/HCPCS: 36415; 85027

== ENCOUNTER 2021-08-31 11:28 | Emergency (ER) | payer BC, OTHER ==
[2021-08-31 11:32] VITALS: TEMP 97.6
[2021-08-31] MEDS ORDERED: SODIUM CHLORIDE 0.9% 1,000 ML IV STA (12:06)
--- NOTE | 2021-08-31 12:06 | ED ---
General Adult HPI - General Chief complaint: Neuro Symptoms/Deficit Stated complaint: episode of rt sided numbness Time Seen by Provider: 08/31/21 11:41 Source: patient Mode of arrival: ambulatory Limitations: no limitations - History of Present Illness Initial comments: Dictation was produced using [employer] dictation software. please excuse any gram matical, word or spelling errors. Chief Complaint: 31-year-old female presents to the emergency department for episode of right-sided numbness, headache History of Present Illness: Patient is 31-year-old female she has no significant comorbidities. She presents to the emergency department for episode of right- sided numbness, tingling and headache. Her story begins on Tuesday when she began experiencing complete right-sided paresthesias encompassing the right lower extremity right upper extremity and right face. She also had several hours of right-sided vision loss. The following day her symptoms of vision loss improved. The blurriness. All throughout that time she had a mild headache. She states the headache is not severe. She reports that the paresthesias and sensory issues on her right side of her body improved. She presents today because she was at work speaking with some of the people she works with who scared her. She called the primary care doctor and spoke with the nurse practitioners that directed to the emergency department. Patient states that neurologically she feels significantly better. She has a mild cold cranial headache. No exacerbating factors. She states the pain is not severe. She has no visual loss currently. Her sensation to all of her extremities are normal. Patient has history of emergency and hysterectomy secondary to placenta previa with her third child. The ROS documented in this emergency department record has been reviewed and confirmed by me. Those systems with pertinent positive or negative responses h ave been documented in the HPI. All other systems are other negative and/or noncontributory. PHYSICAL EXAM: General Impression: Alert and oriented x3, not in acute distress HEENT: Normocephalic atraumatic, extra-ocular movements intact, pupils equal and reactive to light bilaterally, mucous membranes moist. Cardiovascular: Heart regular rate and rhythm Chest: Able to complete full sentences, no retractions, no tachypnea Abdomen: abdomen soft, non-tender, non-distended, no organomegaly Musculoskeletal: Pulses present and equal in all extremities, no peripheral edema Motor: no focal deficits noted Neurological: CN II-XII grossly intact, no focal motor or sensory deficits noted, NIH 0 Skin: Intact with no visualized rashes Psych: Normal affect and mood ED course: 31-year-old well-appearing female presents to the emergency department for neurologic symptoms and headache. Her neurologic symptoms resolved. She does have a mild migraine headache today this pain persisted for the last 3 days. Signs upon arrival are within acceptable limits. Physical examination is benign. Laboratory evaluation obtained. CBC, metabolic panel is unremarkable. Computed tomography scan of brain shows no acute intracranial abnormality. Patient related bedside at 1:40 PM found to be stable medical condition. She reports proven of her headache with headache cocktail. Patient feels well. She wants to be discharge. Advised follow-up with primary care doctor. Precautions discussed. EKG interpretation: Ventricular rate 57, sinus bradycardia,. Interval 160, QRS 99, QTC 377. No OR prolongation, no QTC prolongation, no ST or T-wave changes noted. Overall, this EKG is unremarkable - Related Data Home Medications Medication Instructions Recorded Confirmed Pnv,Calcium 72/Iron/Folic Acid 1 tab PO DAILY 08/08/16 06/10/17 [ Plus Tablet] Previous Rx's Medication Instructions Recorded Sertraline [Zoloft] 50 mg PO DAILY #30 tab 05/25/17 Allergies Allergy/AdvReac Type Severity Reaction Status Date / Time No Known Allergies Allergy Verified 08/31/21 11:32 Review of Systems ROS Statement: Those systems with pertinent positive or pertinent negative responses have been documented in the HPI. ROS Other: All systems not noted in ROS Statement are negative. Past Medical History Past Medical History: No Reported History Additional Past Medical History / Comment(s): born with only 1 kidney, Migraine History of Any Multi-Drug Resistant Organisms: None Reported Past Surgical History: Section, Hysterectomy Additional Past Surgical History / Comment(s): d & c breast augmentation Past Anesthesia/Blood Transfusion Reactions: No Reported Reaction Past Psychological History: No Psychological Hx Reported Smoking Status: Never smoker Past Alcohol Use History: None Reported Past Drug Use History: None Reported - Past Family History Father Family Medical History: No Reported History Mother Family Medical History: Diabetes Mellitus Additional Family Medical History / Comment(s): ITP, spleen removed. Son(s) Family Medical History: No Reported History General Exam Limitations: no limitations Course Vital Signs 08/31/21 08/31/21 11:29 12:29 Temperature 97.6 F Pulse Rate 78 56 L Respiratory 20 16 Rate Blood Pressure 153/104 136/85 O2 Sat by Pulse 98 99 Oximetry Medical Decision Making - Lab Data Result diagrams: 08/31/21 12:24 08/31/21 12:24 Lab Results 08/31/21 08/31/21 Range/Units 12:24 12:24 WBC 6.7 (3.8-10.6) k/uL RBC 4.74 (3.80-5.40) m/uL Hgb 14.3 (11.4-16.0) gm/dL Hct 43.4 (34.0-46.0) % MCV 91.5 (80.0-100.0) fL MCH 30.2 (25.0-35.0) pg MCHC 33.0 (31.0-37.0) g/dL RDW 12.1 (11.5-15.5) % Plt Count 272 (150-450) k/uL MPV 8.0 Neutrophils % 59 % Lymphocytes % 34 % Monocytes % 4 % Eosinophils % 1 % Basophils % 1 % Neutrophils # 3.9 (1.3-7.7) k/uL Lymphocytes # 2.3 (1.0-4.8) k/uL Monocytes # 0.2 (0-1.0) k/uL Eosinophils # 0.1 (0-0.7) k/uL Basophils # 0.1 (0-0.2) k/uL Sodium 138 (137-145) mmol/L Potassium 4.2 (3.5-5.1) mmol/L Chloride 102 (98-107) mmol/L Carbon Dioxide 26 (22-30) mmol/L Anion Gap 10 mmol/L BUN 10 (7-17) mg/dL Creatinine 0.70 (0.52-1.04) mg/dL Est GFR (CKD-EPI)AfAm >90 (>60 ml/min/1.73 sqM) Est GFR (CKD-EPI)NonAf >90 (>60 ml/min/1.73 sqM) Glucose 88 (74-99) mg/dL Calcium 9.5 (8.4-10.2) mg/dL Magnesium 1.9 (1.6-2.3) mg/dL Disposition Clinical Impression: Headache Disposition: HOME SELF-CARE Condition: Good Instructions (If sedation given, give patient instructions): Acute Headache (ED) Is patient prescribed a controlled substance at d/c from ED?: No Referrals: Armani Dash III, MD [Primary Care Provider] - 1-2 days
[2021-08-31] MEDS ORDERED: ONDANSETRON 4 MG/2 ML VIAL IVP STA (12:08)
[2021-08-31] MEDS ORDERED: KETOROLAC 30 MG/ML 1 ML VIAL IVP STA (12:08)
[2021-08-31 12:30] VITALS: BP 136/85; PULSE 56; RESP 16
[2021-08-31 12:38] LABS: Basophils # (A) 0.1 k/uL (0-0.2); Basophils % (A) 1 %; Eosinophils # (A) 0.1 k/uL (0-0.7); Eosinophils % (A) 1 %; HCT 43.4 % (34.0-46.0); HGB 14.3 gm/dL (11.4-16.0); Lymphocytes # (A) 2.3 k/uL (1.0-4.8); Lymphocytes % (A) 34 %; MCH 30.2 pg (25.0-35.0); MCV 91.5 fL (80.0-100.0); Monocytes # (A) 0.2 k/uL (0-1.0); Monocytes % (A) 4 %; Neutrophils # (A) 3.9 k/uL (1.3-7.7); Neutrophils % (A) 59 %; Platelet Count 272 k/uL (150-450); RBC 4.74 m/uL (3.80-5.40); RDW 12.1 % (11.5-15.5); WBC 6.7 k/uL (3.8-10.6)
[2021-08-31 12:42] LABS: African American GFR (CKD) >90 (>60 ml/min/1.73 sqM); Anion Gap 10 mmol/L; Blood Urea Nitrogen 10 mg/dL (7-17); Calcium 9.5 mg/dL (8.4-10.2); Carbon Dioxide 26 mmol/L (22-30); Chloride 102 mmol/L (98-107); Glucose 88 mg/dL (74-99); Magnesium 1.9 mg/dL (1.6-2.3); Non-African American GFR(CKD) >90 (>60 ml/min/1.73 sqM); Potassium 4.2 mmol/L (3.5-5.1); Sodium 138 mmol/L (137-145)
--- NOTE | 2021-08-31 13:35 | CT ---
EXAMINATION TYPE: CT brain wo con DATE OF EXAM: 08/31/2021 COMPARISON: None available HISTORY: Episode of right sided numbness. CT DLP: 1095.4 mGycm Automated exposure control for dose reduction was used. TECHNIQUE: CT scan of the brain is performed without IV contrast administration. FINDINGS: Unremarkable morphology of the cerebral hemispheres, cerebellum and brainstem. No acute intracranial hemorrhage. No gross acute cortical infarct. No midline shift, herniation or ventriculectomy. Unremarkable jernigan-white matter differentiation, basal cisterns, sella and CP angles. No gross space-o ccupying lesion, vasogenic edema or mass effect. Unremarkable orbits. Clear visualized paranasal sinuses and mastoid air cells. Unremarkable calvarial bones. IMPRESSION: No acute intracranial abnormality or gross space-occupying lesion by this nonenhanced CT scan. Furthe r MRI assessment can be considered if clinically required.
== END 2021-08-31 14:19 | disposition home or self-care (01) ==
LOC: EC 11:28
DX: R51.9 Headache, unspecified (principal)
CPT/HCPCS: 36415; 93005; 80048; 83735; 85025; 70450; 99284; 96374; 96375; 96361; J2405; J1885

== ENCOUNTER → 2022-05-21 | Outpatient (CLI) | payer BC, OTHER ==
--- NOTE | 2022-05-21 18:35 | MR ---
EXAMINATION TYPE: MR brain wo/w con DATE OF EXAM: 05/21/2022 6:06 PM CLINICAL INDICATION:Female, 31 years old with history of G43.109 MIGRAINE WITH AURA,G51.9 DISORDER OF FACIA; COMPARISON: CT brain 08/23/2021 TECHNIQUE: Multi planar, multi sequence imaging was performed through the brain including: T1, T2, In version recovery, susceptibility weighted imaging and gradient echo imaging and Diffusion weighted im aging. The patient was then given intravenous contrast and multi planar, T1 fat-saturation images wer e obtained. IV Contrast: 6.5ml cc Gadavist FINDINGS: The jernigan-white junctions, ventricular system, basal cisterns appear unremarkable. Diffusion-weighted imaging shows no evidence of restricted diffusion to suggest acute/subacute infarct. Intracranial art erial flow voids are maintained. Midline structures show no abnormality. Single focus of nonenhancing white matter changes in the right parietal lobe. The susceptibility weighted images do not reveal an y evidence for micro-hemorrhage. After administration of gadolinium, no abnormal enhancement is seen. The bone marrow signal is within normal limits. The paranasal sinuses and globes are unremarkable. IMPRESSION: 1. No evidence of intracranial mass, acute/subacute infarct, or abnormal enhancement. 2. Single focus of nonspecific white matter changes in the right parietal lobe.
== END | disposition home or self-care (01) ==
LOC: RADMRIMAIN 16:09
PROVIDERS: ATTEND Psychiatry & Neurology Neurology
DX: G43.109 Migraine with aura, not intractable, without status migrainosus (principal); G51.9 Disorder of facial nerve, unspecified; R90.82 White matter disease, unspecified
CPT/HCPCS: 70553; A9585

== ENCOUNTER → 2023-12-26 | Outpatient (CLI) | payer BC, OTHER ==
--- NOTE | 2023-12-26 15:37 | US ---
EXAMINATION TYPE: US kidneys/renal and bladder DATE OF EXAM: 12/26/2023 COMPARISON: NONE CLINICAL INDICATION: Female, 33 years old with history of R10.9 FLANK PAIN; Left flank pain since . EXAM MEASUREMENTS: Right Kidney: 12.0 x 5.9 x 4.9 cm Left Kidney: 11.8 x 5.3 x 4.5 cm Right Kidney: Renal pelvis appears dilated post-void Left Kidney: Renal pelvis appears dilated post-void Bladder: Appears wnl Bilateral Jets seen: Yes Question stomach versus complex area in the LUQ with movement seen within: 10.5 x 4.9 x 4.8 cm. IMPRESSION: 1. Indeterminate area in the left upper quadrant possibly relating to the stomach. Consider cross-se ctional imaging for complete evaluation. 2. No evidence for obstructive uropathy.
== END | disposition home or self-care (01) ==
LOC: RADUSWWP 13:21
PROVIDERS: ATTEND Family Medicine
DX: R10.9 Unspecified abdominal pain (principal)
CPT/HCPCS: 76770

== ENCOUNTER 2023-12-27 11:57 | Emergency (ER) | payer BC ==
[2023-12-27 11:59] VITALS: RESP 18
--- NOTE | 2023-12-27 12:11 | ED ---
Back Pain HPI - General Chief Complaint: Abdominal Pain Stated Complaint: Vomiting,fever Time Seen by Provider: 12/27/23 12:00 Source: patient, RN notes reviewed Mode of arrival: ambulatory Limitations: no limitations - History of Present Illness Initial Comments: This is a 33-year-old female who presents to the emergency department for left flank pain. States that this started a few days ago and has since persisted. She also had problems with urinating and states that she is only going small amounts at a time. Denies any radiation of pain into the abdomen. She reports a history of UTIs but denies any history of kidney stones. She saw her primary care provider and had an ultrasound done here yesterday but has not yet gotten the results. She was told that if she developed fevers or vomiting that she should come to the emergency department. States that she developed both fevers and vomiting, prompting her to come in for evaluation. She was started on Bactrim by her PCP yesterday for potential infection. MD Complaint: back pain - Related Data Previous Rx's Medication Instructions Recorded Ketorolac [Toradol] 10 mg PO Q6HR PRN #15 tab 12/27/23 Ondansetron Odt [Zofran Odt] 4 mg PO Q8HR PRN #15 tab 12/27/23 Tamsulosin [Flomax] 0.4 mg PO DAILY #10 cap 12/27/23 Allergies Allergy/AdvReac Type Severity Reaction Status Date / Time No Known Allergies Allergy Verified 12/27/23 12:00 Review of Systems ROS Statement: Those systems with pertinent positive or pertinent negative responses have been documented in the HPI. ROS Other: All systems not noted in ROS Statement are negative. Past Medical History Past Medical History: No Reported History Additional Past Medical History / Comment(s): born with only 1 kidney, Migraine History of Any Multi-Drug Resistant Organisms: None Reported Past Surgical History: Section, Hysterectomy Additional Past Surgical History / Comment(s): d & c breast augmentation Past Anesthesia/Blood Transfusion Reactions: No Reported Reaction Past Psychological History: No Psychological Hx Reported Smoking Status: Never smoker Past Alcohol Use History: Occasional Past Drug Use History: None Reported - Past Family History Father Family Medical History: No Reported History Mother Family Medical History: Diabetes Mellitus Additional Family Medical History / Comment(s): ITP, spleen removed. Son(s) Family Medical History: No Reported History General Exam Limitations: no limitations General appearance: alert, in no apparent distress Head exam: Present: atraumatic, normocephalic, normal inspection Respiratory exam: Present: normal lung sounds bilaterally. Absent: respiratory distress, wheezes, rales, rhonchi, stridor Cardiovascular Exam: Present: regular rate, normal rhythm, normal heart sounds. Absent: systolic murmur, diastolic murmur, rubs, gallop, clicks GI/Abdominal exam: Present: soft, normal bowel sounds. Absent: distended, tenderness, guarding, rebound, rigid Back exam: Present: CVA tenderness (L) Neurological exam: Present: alert, oriented X3, CN II-XII intact Psychiatric exam: Present: normal affect, normal mood Skin exam: Present: warm, dry, intact, normal color. Absent: rash Course Vital Signs 12/27/23 12/27/23 11:57 14:11 Temperature 99.6 F 98.9 F Pulse Rate 109 H 98 Respiratory 18 18 Rate Blood Pressure 111/77 112/82 O2 Sat by Pulse 98 98 Oximetry Medical Decision Making - Medical Decision Making This is a 33-year-old female who presents to the emergency department for left flank pain. Was pt. sent in by a medical professional or institution? @ -No Did you speak to anyone other than the patient for history? @ -No Did you review nursing and triage notes? @ -Yes, and I agree, it is accurate with regards to the patient's symptoms. Were old charts reviewed? @ -Ultrasound of the kidneys/renal and bladder from yesterday demonstrating an indeterminate area in the left upper quadrant possibly relating to the stomach. There was no evidence for obstructive uropathy. Differential Diagnosis? @ -Differential Flank Pain: UTI, pyelonephritis, kidney stone, musculoskeletal, pancreatitis, cholecystitis, this is not meant to be an all-inclusive list. EKG interpreted by me (3pts min.)? @ -Not obtained X-rays interpreted by me (1pt min.)? @ -Not obtained CT interpreted by me (1pt min.)? @ -CT scan of the abdomen and pelvis obtained. My interpretation identifies a possible left ureteral calculus. U/S interpreted by me (1pt. min.)? @ -Not obtained What testing was considered but not performed? (CT, X-rays, U/S, labs)? Why? @ -None What meds were considered but not given? Why? @ -None Did you discuss the management of the patient with other professionals? @ -No Did you reconcile home meds? @ -No Was smoking cessation discussed for >3mins.? @ -No Was critical care preformed (if so, how long)? @ -No Were there social determinants of health that impacted care today? How? (Homelessness, low income, unemployed, alcoholism, drug addiction, transportation, low edu. Level, literacy, decrease access to med. care, [facility], rehab)? @ -No Was there de-escalation of care discussed even if they declined? (Discuss DNR or withdrawal of care, Hospice)? @ -No What co-morbidities impacted this encounter? (DM, HTN, Smoking, COPD, CAD, Cancer, CVA, Hep., AIDS, mental health diagnosis, sleep apnea, morbid obesity)? @ -None Was patient admitted / discharged? @ -Discharged. Lab work unremarkable. Urinalysis is contaminated but demonstrates elevated white blood cells and red blood cells. Urine sent for culture. Patient does note starting Bactrim yesterday as well. CT scan of the abdomen and pelvis demonstrates mild fullness of the left renal collecting system without dariel hydronephrosis. Radiology did not identify any evidence of an obstructing radiopaque calculus. However, CT scan was reviewed with ED attending, Dr. Grimaldo, and there was a radiopaque area that seems to p otentially represent a calculus in the left ureter. Discussed with the patient that this may be related to a stone, and we will treat her as such. She was given 1 g of ceftriaxone in the emergency department and I advised continuing to take the Bactrim as prescribed. Prescription for Toradol, Zofran, and Flomax provided. Patient sent home with urine strainer as well and given information for urology follow-up. Undiagnosed new problem with uncertain prognosis? @ -None Drug Therapy requiring intensive monitoring for toxicity (Heparin, Nitro, Insulin, Cardizem)? @ -None Were any procedures done? @ -None Diagnosis/symptom? @ -Left flank pain, UTI, renal colic, possible ureteral calculus Acute, or Chronic, or Acute on Chronic? @ -Acute Uncomplicated (without systemic symptoms) or Complicated (systemic symptoms)? @ -Uncomplicated Side effects of treatment? @ -None Exacerbation, Progression, or Severe Exacerbation] @ -Not applicable Poses a threat to life or bodily function? @ -No Return precautions reviewed in depth, the patient is instructed to return to the emergency department with any new, worsening, or concerning symptoms. Patient verbalized understanding. This case was discussed in detail with the attending ED physician, Dr. Grimaldo. Presentation, findings, and treatment plan discussed in detail as well. - Lab Data Result diagrams: 12/27/23 12:12/27/23 12: Lab Results 12/27/23 12/27/23 12/27/23 Range/Units 12: 12: 12: WBC 8.9 (3.8-10.6) k/uL RBC 4.57 (3.80-5.40) m/uL Hgb 14.2 (11.4-16.0) gm/dL Hct 41.7 (34.0-46.0) % MCV 91.4 (80.0-100.0) fL MCH 31.0 (25.0-35.0) pg MCHC 34.0 (31.0-37.0) g/dL RDW 12.2 (11.5-15.5) % Plt Count 220 (150-450) k/uL MPV 8.4 Neutrophils % 90 % Lymphocytes % 2 % Monocytes % 4 % Eosinophils % 4 % Basophils % 1 % Neutrophils # 8.0 H (1.3-7.7) k/uL Lymphocytes # 0.2 L (1.0-4.8) k/uL Monocytes # 0.3 (0-1.0) k/uL Eosinophils # 0.3 (0-0.7) k/uL Basophils # 0.1 (0-0.2) k/uL Sodium 138 (137-145) mmol/L Potassium 3.8 (3.5-5.1) mmol/L Chloride 108 H (98-107) mmol/L Carbon Dioxide 24 (22-30) mmol/L Anion Gap 6 mmol/L BUN 12 (7-17) mg/dL Creatinine 0.72 (0.52-1.04) mg/dL Est GFR (CKD-EPI)AfAm >90 (>60 ml/min/1.73 sqM) Est GFR (CKD-EPI)NonAf >90 (>60 ml/min/1.73 sqM) Glucose 92 (74-99) mg/dL Plasma Lactic Acid Heath (0.7-2.0) mmol/L Calcium 9.2 (8.4-10.2) mg/dL Total Bilirubin 0.7 (0.2-1.3) mg/dL AST 28 (14-36) U/L ALT 19 (4-34) U/L Alkaline Phosphatase 54 (38-126) U/L Total Protein 6.4 (6.3-8.2) g/dL Albumin 4.1 (3.5-5.0) g/dL Amylase 48 (30-110) U/L Lipase 22 L (23-300) U/L Urine Color Yellow Urine Appearance Cloudy H (Clear) Urine pH 6.0 (5.0-8.0) Ur Specific [place] 1.030 (1.001-1.035) Urine Protein 2+ H (Negative) Urine Glucose (UA) Negative (Negative) Urine Ketones Trace H (Negative) Urine Blood Moderate H (Negative) Urine Nitrite Negative (Negative) Urine Bilirubin Negative (Negative) Urine Urobilinogen <2.0 (<2.0) mg/dL Ur Leukocyte Esterase Moderate H (Negative) Urine RBC 129 H (0-5) /hpf Urine WBC 53 H (0-5) /hpf Ur Squamous Epith Cells 13 H (0-4) /hpf Urine Bacteria Rare H (None) /hpf Hyaline Casts 7 H (0-2) /lpf Urine Mucus Many H (None) /hpf 12/26/ Range/Units 12:26 WBC (3.8-10.6) k/uL RBC (3.80-5.40) m/uL Hgb (11.4-16.0) gm/dL Hct (34.0-46.0) % MCV (80.0-100.0) fL MCH (25.0-35.0) pg MCHC (31.0-37.0) g/dL RDW (11.5-15.5) % Plt Count (150-450) k/uL MPV Neutrophils % % Lymphocytes % % Monocytes % % Eosinophils % % Basophils % % Neutrophils # (1.3-7.7) k/uL Lymphocytes # (1.0-4.8) k/uL Monocytes # (0-1.0) k/uL Eosinophils # (0-0.7) k/uL Basophils # (0-0.2) k/uL Sodium (137-145) mmol/L Potassium (3.5-5.1) mmol/L Chloride (98-107) mmol/L Carbon Dioxide (22-30) mmol/L Anion Gap mmol/L BUN (7-17) mg/dL Creatinine (0.52-1.04) mg/dL Est GFR (CKD-EPI)AfAm (>60 ml/min/1.73 sqM) Est GFR (CKD-EPI)NonAf (>60 ml/min/1.73 sqM) Glucose (74-99) mg/dL Plasma Lactic Acid Heath 0.8 (0.7-2.0) mmol/L Calcium (8.4-10.2) mg/dL Total Bilirubin (0.2-1.3) mg/dL AST (14-36) U/L ALT (4-34) U/L Alkaline Phosphatase (38-126) U/L Total Protein (6.3-8.2) g/dL Albumin (3.5-5.0) g/dL Amylase (30-110) U/L Lipase (23-300) U/L Urine Color Urine Appearance (Clear) Urine pH (5.0-8.0) Ur Specific [place] (1.001-1.035) Urine Protein (Negative) Urine Glucose (UA) (Negative) Urine Ketones (Negative) Urine Blood (Negative) Urine Nitrite (Negative) Urine Bilirubin (Negative) Urine Urobilinogen (<2.0) mg/dL Ur Leukocyte Esterase (Negative) Urine RBC (0-5) /hpf Urine WBC (0-5) /hpf Ur Squamous Epith Cells (0-4) /hpf Urine Bacteria (None) /hpf Hyaline Casts (0-2) /lpf Urine Mucus (None) /hpf - Radiology Data Radiology results: report reviewed, image reviewed Disposition Clinical Impression: Left flank pain, Colic, ureteral, Ureteral stone, UTI (urinary tract infection) Disposition: HOME SELF-CARE Instructions (If sedation given, give patient instructions): Kidney Stones (ED), Renal Colic (ED), Flank Pain (ED) Additional Instructions: Return to the emergency department with any new, worsening, or concerning symptoms. Take the Toradol with Tylenol as needed for pain relief. If you choose to take the Toradol, do not take any other anti-inflammatories such as ibuprofen, take one or the other. Continue taking your antibiotic as prescribed. Take the Flomax daily until your pain resolves or you pass the kidney stone. Take the Zofran up to every 8 hours as needed for nausea and vomiting. Contact urology as listed below for a follow-up appointment. Follow up with your primary care provider in 1-2 days. Prescriptions: Tamsulosin [Flomax] 0.4 mg PO DAILY #10 cap Ketorolac [Toradol] 10 mg PO Q6HR PRN #15 tab PRN Reason: Pain Ondansetron Odt [Zofran Odt] 4 mg PO Q8HR PRN #15 tab PRN Reason: Nausea And Vomiting Is patient prescribed a controlled substance at d/c from ED?: No Referrals: Abran Salinas DO [Primary Care Provider] - 1-2 days Luis Meza MD [STAFF PHYSICIAN] - 1-2 days Time of Disposition: 13:46
[2023-12-27] MEDS: SODIUM CHLORIDE 0.9% 1,000 ML IV STA (12:31)
[2023-12-27] MEDS: ONDANSETRON 4 MG/2 ML VIAL IVP STA (12:36)
[2023-12-27 12:44] LABS: Basophils # (A) 0.1 k/uL (0-0.2); Basophils % (A) 1 %; Eosinophils # (A) 0.3 k/uL (0-0.7); Eosinophils % (A) 4 %; HCT 41.7 % (34.0-46.0); HGB 14.2 gm/dL (11.4-16.0); Lymphocytes # (A) 0.2 k/uL (1.0-4.8); Lymphocytes % (A) 2 %; MCV 91.4 fL (80.0-100.0); Mean Platelet Volume 8.4; Monocytes # (A) 0.3 k/uL (0-1.0); Monocytes % (A) 4 %; Neutrophils % (A) 90 %; Platelet Count 220 k/uL (150-450); RBC 4.57 m/uL (3.80-5.40); RDW 12.2 % (11.5-15.5); WBC 8.9 k/uL (3.8-10.6)
[2023-12-27 12:53] LABS: Appearance,Urine Cloudy (Clear); Bacteria,Urine Rare /hpf; Bilirubin,Urine Negative (Negative); Blood,Urine Moderate (Negative); Color,Urine Yellow; Glucose,Urine (UA) Negative (Negative); Hyaline Casts,Urine 7 /lpf (0-2); Ketones,Urine Trace (Negative); Leukocyte Esterase,Urine Moderate (Negative); Mucus,Urine Many /hpf; Nitrite,Urine Negative (Negative); Protein,Urine 2+ (Negative); RBC,Urine 129 /hpf (0-5); Squamous Epithelial Cell,Urine 13 /hpf (0-4); Urobilinogen,Urine <2.0 mg/dL (<2.0); WBC,Urine 53 /hpf (0-5)
[2023-12-27 13:01] LABS: ALT 19 U/L (4-34); AST 28 U/L (14-36); African American GFR (CKD) >90 (>60 ml/min/1.73 sqM); Albumin 4.1 g/dL (3.5-5.0); Alkaline Phosphatase 54 U/L (38-126); Amylase 48 U/L (30-110); Anion Gap 6 mmol/L; Blood Urea Nitrogen 12 mg/dL (7-17); Calcium 9.2 mg/dL (8.4-10.2); Carbon Dioxide 24 mmol/L (22-30); Chloride 108 mmol/L (98-107); Glucose 92 mg/dL (74-99); Lipase 22 U/L (23-300); Non-African American GFR(CKD) >90 (>60 ml/min/1.73 sqM); Potassium 3.8 mmol/L (3.5-5.1); Sodium 138 mmol/L (137-145); Total Bilirubin 0.7 mg/dL (0.2-1.3); Total Protein 6.4 g/dL (6.3-8.2)
--- NOTE | 2023-12-27 13:32 | CT ---
EXAMINATION TYPE: CT abdomen pelvis wo con DATE OF EXAM: 12/27/2023 COMPARISON: Ultrasound 12/26/2023 HISTORY: Left flank pain Examination of the solid and hollow viscera is limited given the lack of contrast. FINDINGS: LUNG BASES: No evidence for nodule. No evidence for infiltrate. LIVER/GB: The gallbladder is unremarkable. No space-occupying hepatic lesion. PANCREAS: No pancreatic mass identified. No inflammatory process seen. SPLEEN: No evidence for splenomegaly. No intrasplenic lesions seen. ADRENALS: No adrenal nodules identified. No evidence for thickening. KIDNEYS: No evidence for renal mass. No nephrolithiasis. Mild fullness left renal collecting system w ithout dariel hydronephrosis. BOWEL: Appendix has a normal appearance. No evidence of bowel obstruction. No inflammatory process. Lymph nodes: No evidence for adenopathy greater than 1 cm. Abdominal aorta: Atheromatous changes seen. No evidence for aneurysm. Genital organs: No significant abnormality. Other: No significant abnormality. IMPRESSION: 1.Mild fullness left renal collecting system without dariel hydronephrosis. No obstructing radiopaque calculus present.
[2023-12-27] MEDS: cefTRIAXone IN SWFI 1,000 MG/10 ML SYRINGE IVP STA (13:56)
[2023-12-27] MEDS: ACET/COD 300 MG/30 MG STARTER PACK 6 TAB BTL PO STA (14:06)
[2023-12-27 14:13] VITALS: BP 112/82; PULSE 98; TEMP 98.9
== END 2023-12-27 14:14 | disposition home or self-care (01) ==
LOC: EC 11:57
DX: N39.0 Urinary tract infection, site not specified (principal); N20.1 Calculus of ureter
CPT/HCPCS: 99284; 96374; 96375; 96361; 36415; 80053; 82150; 83605; 83690; 85025; 81001; 87086; 74176; J2405; J0696

== ENCOUNTER 2023-12-29 07:49 | Emergency (ER) | payer BC ==
[2023-12-29 08:00] VITALS: RESP 18
[2023-12-29] MEDS: SODIUM CHLORIDE 0.9% 1,000 ML IV STA (08:27)
[2023-12-29] MEDS: KETOROLAC 15 MG/ML 1 ML VIAL IVP STA (08:28)
[2023-12-29] MEDS: METOCLOPRAMIDE 5 MG/ML 2 ML VIAL IVP STA (08:31)
--- NOTE | 2023-12-29 08:56 | ED ---
General Adult HPI - General Chief complaint: Recheck/Abnormal Lab/Rx Stated complaint: kidney pain Time Seen by Provider: 12/29/23 07:53 Source: patient, RN notes reviewed, old records reviewed Mode of arrival: ambulatory Limitations: no limitations - History of Present Illness Initial comments: 33-year-old female presents emergency department chief complaint of severe left flank pain. Patient states she started having some discomfort several days ago was placed on Bactrim by air PCP. Patient was seen emergency department 2 days ago sound to have fullness of her left kidney without notable obstructive renal stone on CT. Patient was to continue antibiotics but symptoms are worsening she states she cannot hold her urine she states she started having swelling of her feet, hands now. Patient states that she is also on Flomax, Zofran, Toradol. She does complain of lower abdominal pain, pressure denies any chance of denies chest pain no shortness of breath. - Related Data Previous Rx's Medication Instructions Recorded Ketorolac [Toradol] 10 mg PO Q6HR PRN #15 tab 12/27/23 Ondansetron Odt [Zofran Odt] 4 mg PO Q8HR PRN #15 tab 12/27/23 Tamsulosin [Flomax] 0.4 mg PO DAILY #10 cap 12/27/23 Allergies Allergy/AdvReac Type Severity Reaction Status Date / Time No Known Allergies Allergy Verified 12/29/23 08:00 Review of Systems ROS Statement: Those systems with pertinent positive or pertinent negative responses have been documented in the HPI. ROS Other: All systems not noted in ROS Statement are negative. Past Medical History Past Medical History: No Reported History Additional Past Medical History / Comment(s): born with only 1 kidney, Migraine History of Any Multi-Drug Resistant Organisms: None Reported Past Surgical History: Section, Hysterectomy Additional Past Surgical History / Comment(s): d & c breast augmentation Past Anesthesia/Blood Transfusion Reactions: No Reported Reaction Past Psychological History: No Psychological Hx Reported Smoking Status: Never smoker Past Alcohol Use History: Occasional Past Drug Use History: None Reported - Past Family History Father Family Medical History: No Reported History Mother Family Medical History: Diabetes Mellitus Additional Family Medical History / Comment(s): ITP, spleen removed. Son(s) Family Medical History: No Reported History General Exam Limitations: no limitations General appearance: alert, in no apparent distress Head exam: Present: atraumatic, normocephalic, normal inspection Eye exam: Present: normal appearance, PERRL, EOMI. Absent: scleral icterus, conjunctival injection, periorbital swelling ENT exam: Present: normal exam, mucous membranes moist Neck exam: Present: normal inspection, full ROM. Absent: tenderness, meningismus, lymphadenopathy Respiratory exam: Present: normal lung sounds bilaterally. Absent: respiratory distress, wheezes, rales, rhonchi, stridor Cardiovascular Exam: Present: normal rhythm, tachycardia, normal heart sounds. Absent: systolic murmur, diastolic murmur, rubs, gallop, clicks GI/Abdominal exam: Present: soft, tenderness, normal bowel sounds. Absent: distended, guarding, rebound, rigid Back exam: Present: CVA tenderness (L). Absent: CVA tenderness (R) Neurological exam: Present: alert, oriented X3 Skin exam: Present: warm, dry, intact, normal color. Absent: rash Course Vital Signs 12/29/23 12/29/23 07:57 09:56 Temperature 98 F 98.2 F Pulse Rate 102 H 94 Respiratory 18 18 Rate Blood Pressure 104/63 92/63 O2 Sat by Pulse 98 96 Oximetry Medical Decision Making - Medical Decision Making Was pt. sent in by a medical professional or institution (, PA, SIZER MACHINE, urgent care, hospital, or correction...) When possible be specific @ -No Did you speak to anyone other than the patient for history (EMS, parent, family, police, friend...)? What history was obtained from this source @ -No Did you review nursing and triage notes (agree or disagree)? Why? @ -I reviewed and agree with nursing and triage notes Were old charts reviewed (outside hosp., previous admission, EMS record, old EKG, old radiological studies, urgent care reports/EKG's, correction records)? Report findings @ -Reviewed laboratory studies from [address] abdomen pelvis Differential Diagnosis (chest pain, altered mental status, abdominal pain women, abdominal pain men, vaginal bleeding, weakness, fever, dyspnea, syncope, headache, dizziness, GI bleed, back pain, seizure, CVA, palpatations, mental h ealth, musculoskeletal)? @ -Differential Abdominal Pain Women: Appendicitis, Cholecystitis, diverticulosis, ischemic bowel, pancreatitis, hepatitis, UTI, gastroenteritis, AAA, incarcerated hernia, bowel obstruction, constipation, inflammatory bowel, hepatitis, peptic ulcer disease, splenic infarction, perforated viscus, vulvitis, ovarian torsion, PID, kidney stone, placenta abruption, this is not meant to be an all-inclusive list EKG interpreted by me (3pts min.). @ -None X-rays interpreted by me (1pt min.). @ -None done CT interpreted by me None U/S interpreted by me (1pt. min.). @ -Ultrasound showing resolution of prior fullness of the left kidney pelvis, there is mild on the right What testing was considered but not performed or refused? (CT, X-rays, U/S, labs)? Why? @ -None What meds were considered but not given or refused? Why? @ -None Did you discuss the management of the patient with other professionals (professionals i.e. , PA, SIZER MACHINE, lab, RT, psych nurse, social sciences professor, full stack developer, teacher, home lending officer, spring encaser)? Give summary @ -No Was smoking cessation discussed for >3mins.? @ -No Was critical care preformed (if so, how long)? @ -No Were there social determinants of health that impacted care today? How? (Homelessness, low income, unemployed, alcoholism, drug addiction, transportation, low edu. Level, literacy, decrease access to med. care, [facility], rehab)? @ -No Was there de-escalation of care discussed even if they declined (Discuss DNR or withdrawal of care, Hospice)? DNR status @ -No What co-morbidities impacted this encounter? (DM, HTN, Smoking, COPD, CAD, Cancer, CVA, ARF, Chemo, Hep., AIDS, mental health diagnosis, sleep apnea, morbid obesity)? @ -None Was patient admitted / discharged? Hospital course, mention meds given and route, prescriptions, significant lab abnormalities, going to OR and other pertinent info. @ -Discharged patient's pain is improved. Ultrasound showed resolution of fullness of the left kidney more likely consistent with a recently passed stone patient will discontinue antibiotics, current medications which may be causing allergic reaction. Undiagnosed new problem with uncertain prognosis? @ -No Drug Therapy requiring intensive monitoring for toxicity (Heparin, Nitro, Insulin, Cardizem)? @ -No Were any procedures done? @ -No Diagnosis/symptom? @ -Flank pain, kidney stone Acute, or Chronic, or Acute on Chronic? @ -acute Uncomplicated (without systemic symptoms) or Complicated (systemic symptoms)? @Uncomplicated Side effects of treatment? @ -No Exacerbation, Progression, or Severe Exacerbation? @ -No Poses a threat to life or bodily function? How? (Chest pain, [place], [place], pneumonia, PE, COPD, DKA, ARF, appy, cholecystitis, CVA, Diverticulitis, Homicidal, Suicidal, threat to staff... and all critical care pts) @ -No - Lab Data Result diagrams: 12/29/23 08:26 12/29/23 08:26 Lab Results 12/29/23 12/29/23 12/29/23 Range/Units 08:26 08: 08:26 WBC 4.3 (3.8-10.6) k/uL RBC 4.49 (3.80-5.40) m/uL Hgb 13.2 (11.4-16.0) gm/dL Hct 40.2 (34.0-46.0) % MCV 89.4 (80.0-100.0) fL MCH 29.4 (25.0-35.0) pg MCHC 32.9 (31.0-37.0) g/dL RDW 12.1 (11.5-15.5) % Plt Count 159 (150-450) k/uL MPV 8.6 Neutrophils % 83 % Lymphocytes % 7 % Monocytes % 3 % Eosinophils % 5 % Basophils % 0 % Neutrophils # 3.6 (1.3-7.7) k/uL Lymphocytes # 0.3 L (1.0-4.8) k/uL Monocytes # 0.1 (0-1.0) k/uL Eosinophils # 0.2 (0-0.7) k/uL Basophils # 0.0 (0-0.2) k/uL Sodium (137-145) mmol/L Potassium (3.5-5.1) mmol/L Chloride (98-107) mmol/L Carbon Dioxide (22-30) mmol/L Anion Gap mmol/L BUN (7-17) mg/dL Creatinine (0.52-1.04) mg/dL Est GFR (CKD-EPI)AfAm (>60 ml/min/1.73 sqM) Est GFR (CKD-EPI)NonAf (>60 ml/min/1.73 sqM) Glucose (74-99) mg/dL Plasma Lactic Acid Heath (0.7-2.0) mmol/L Calcium (8.4-10.2) mg/dL Total Bilirubin (0.2-1.3) mg/dL AST (14-36) U/L ALT (4-34) U/L Alkaline Phosphatase (38-126) U/L Total Protein (6.3-8.2) g/dL Albumin (3.5-5.0) g/dL Lipase (23-300) U/L Urine Color Light Yellow Urine Appearance Cloudy H (Clear) Urine pH 6.0 (5.0-8.0) Ur Specific [place] 1.014 (1.001-1.035) Urine Protein Trace H (Negative) Urine Glucose (UA) Negative (Negative) Urine Ketones 1+ H (Negative) Urine Blood Moderate H (Negative) Urine Nitrite Negative (Negative) Urine Bilirubin Negative (Negative) Urine Urobilinogen <2.0 (<2.0) mg/dL Ur Leukocyte Esterase Negative (Negative) Urine RBC 18 H (0-5) /hpf Urine WBC 3 (0-5) /hpf Ur Squamous Epith Cells 9 H (0-4) /hpf Urine Mucus Rare H (None) /hpf Urine HCG, Qual Not Detected (Not Detectd) 12/29/23 12/29/23 Range/Units 08:26 08:26 WBC (3.8-10.6) k/uL RBC (3.80-5.40) m/uL Hgb (11.4-16.0) gm/dL Hct (34.0-46.0) % MCV (80.0-100.0) fL MCH (25.0-35.0) pg MCHC (31.0-37.0) g/dL RDW (11.5-15.5) % Plt Count (150-450) k/uL MPV Neutrophils % % Lymphocytes % % Monocytes % % Eosinophils % % Basophils % % Neutrophils # (1.3-7.7) k/uL Lymphocytes # (1.0-4.8) k/uL Monocytes # (0-1.0) k/uL Eosinophils # (0-0.7) k/uL Basophils # (0-0.2) k/uL Sodium 134 L (137-145) mmol/L Potassium 3.8 (3.5-5.1) mmol/L Chloride 102 (98-107) mmol/L Carbon Dioxide 24 (22-30) mmol/L Anion Gap 8 mmol/L BUN 8 (7-17) mg/dL Creatinine 0.72 (0.52-1.04) mg/dL Est GFR (CKD-EPI)AfAm >90 (>60 ml/min/1.73 sqM) Est GFR (CKD-EPI)NonAf >90 (>60 ml/min/1.73 sqM) Glucose 96 (74-99) mg/dL Plasma Lactic Acid [place] 0.8 (0.7-2.0) mmol/L Calcium 8.7 (8.4-10.2) mg/dL Total Bilirubin 0.3 (0.2-1.3) mg/dL AST 32 (14-36) U/L ALT 27 (4-34) U/L Alkaline Phosphatase 60 (38-126) U/L Total Protein 6.3 (6.3-8.2) g/dL Albumin 3.9 (3.5-5.0) g/dL Lipase 29 (23-300) U/L Urine Color Urine Appearance (Clear) Urine pH (5.0-8.0) Ur Specific [place] (1.001-1.035) Urine Protein (Negative) Urine Glucose (UA) (Negative) Urine Ketones (Negative) Urine Blood (Negative) Urine Nitrite (Negative) Urine Bilirubin (Negative) Urine Urobilinogen (<2.0) mg/dL Ur Leukocyte Esterase (Negative) Urine RBC (0-5) /hpf Urine WBC (0-5) /hpf Ur Squamous Epith Cells (0-4) /hpf Urine Mucus (None) /hpf Urine HCG, Qual (Not Detectd) Disposition Clinical Impression: Left flank pain, Kidney stone Disposition: HOME SELF-CARE Condition: Stable Instructions (If sedation given, give patient instructions): Flank Pain (ED) Additional Instructions: Please return to the Emergency Department if symptoms worsen or any other concerns. Is patient prescribed a controlled substance at d/c from ED?: No Referrals: Abran Salinas DO [Primary Care Provider] - 1-2 days Time of Disposition: 10:12
[2023-12-29 08:58] LABS: Basophils % (A) 0 %; Eosinophils # (A) 0.2 k/uL (0-0.7); Eosinophils % (A) 5 %; HCT 40.2 % (34.0-46.0); HGB 13.2 gm/dL (11.4-16.0); Lymphocytes # (A) 0.3 k/uL (1.0-4.8); Lymphocytes % (A) 7 %; MCH 29.4 pg (25.0-35.0); MCHC 32.9 g/dL (31.0-37.0); MCV 89.4 fL (80.0-100.0); Mean Platelet Volume 8.6; Monocytes # (A) 0.1 k/uL (0-1.0); Monocytes % (A) 3 %; Neutrophils # (A) 3.6 k/uL (1.3-7.7); Neutrophils % (A) 83 %; Platelet Count 159 k/uL (150-450); RBC 4.49 m/uL (3.80-5.40); RDW 12.1 % (11.5-15.5); WBC 4.3 k/uL (3.8-10.6)
--- NOTE | 2023-12-29 09:19 | US ---
EXAMINATION TYPE: US kidneys/renal and bladder DATE OF EXAM: 12/29/2023 COMPARISON: 12/26/23. CT: 12/27/23 CLINICAL INDICATION: Female, 33 years old with history of left flank pain; left flank pain x 1 week EXAM MEASUREMENTS: Right Kidney: 12.4 x 4.6 x 4.2 cm Left Kidney: 11.8 x 4.7 x 4.6 cm Right Kidney: mild dilatation of the renal pelvis Left Kidney: No hydronephrosis or masses seen previous dilation of the collecting system on CT has re solved. Bladder: wnl Bilateral Jets seen: Yes *Mild free fluid seen anterior to the bladder IMPRESSION: Mild dilation of the right renal pelvis which was previously the left renal pelvis on 12/27/2023. Find ings favor pelviectasis on the right. Dilation of the left renal pelvis has resolved. Correlate for r ecently passed stone.
[2023-12-29 09:32] LABS: Appearance,Urine Cloudy (Clear); Bilirubin,Urine Negative (Negative); Blood,Urine Moderate (Negative); Color,Urine Light Yellow; Glucose,Urine (UA) Negative (Negative); Ketones,Urine 1+ (Negative); Leukocyte Esterase,Urine Negative (Negative); Mucus,Urine Rare /hpf; Nitrite,Urine Negative (Negative); Protein,Urine Trace (Negative); RBC,Urine 18 /hpf (0-5); Specific Gravity,Urine 1.014 (1.001-1.035); Squamous Epithelial Cell,Urine 9 /hpf (0-4); Urobilinogen,Urine <2.0 mg/dL (<2.0); WBC,Urine 3 /hpf (0-5)
[2023-12-29 09:40] LABS: ALT 27 U/L (4-34); AST 32 U/L (14-36); African American GFR (CKD) >90 (>60 ml/min/1.73 sqM); Albumin 3.9 g/dL (3.5-5.0); Alkaline Phosphatase 60 U/L (38-126); Anion Gap 8 mmol/L; Blood Urea Nitrogen 8 mg/dL (7-17); Calcium 8.7 mg/dL (8.4-10.2); Carbon Dioxide 24 mmol/L (22-30); Chloride 102 mmol/L (98-107); Glucose 96 mg/dL (74-99); Lipase 29 U/L (23-300); Non-African American GFR(CKD) >90 (>60 ml/min/1.73 sqM); Potassium 3.8 mmol/L (3.5-5.1); Sodium 134 mmol/L (137-145); Total Bilirubin 0.3 mg/dL (0.2-1.3); Total Protein 6.3 g/dL (6.3-8.2)
[2023-12-29 09:57] VITALS: BP 92/63; PULSE 94; TEMP 98.2
== END 2023-12-29 10:24 | disposition home or self-care (01) ==
LOC: EC 07:49
DX: N20.0 Calculus of kidney (principal)
CPT/HCPCS: 36415; 80053; 83605; 83690; 85025; 81001; 81025; 76770; 99284; 96374; 96375; 96361; J2765; J1885

== ENCOUNTER → 2024-03-16 | Outpatient (CLI) | payer BC ==
--- NOTE | 2024-03-16 16:37 | CT ---
CT urogram HISTORY: Chronic kidney disease and unspecified left hydronephrosis. Left lower quadrant pain and tro uble urinating for 2 months. COMPARISON: CT abdomen and pelvis of 12/27/2023 TECHNIQUE: Multiple axial images are obtained through the abdomen and pelvis before and after the une ventful administration of nonionic IV contrast. Delayed postcontrast images were obtained according t o urogram protocol. FINDINGS: Lung bases are clear. On the pre-IV contrast images, there are no renal calcifications or ureteral calcifications. There i s a small adherent gallstone or small gallbladder polyp. There are no focal masses within the liver, pancreas, spleen or adrenal glands and there is no organo megaly. Kidneys excrete contrast promptly and symmetrically and there is no solid renal mass, hydronephrosis or filling defect within the renal collecting systems, ureters or urinary bladder. The bowel loops are normal in caliber and there is no dilatation or obstruction. No inflammatory dukes ges are identified in the bowel wall or mesentery. There is no free intraperitoneal air or fluid. There is no pelvic mass, free fluid, abscess or adenopathy. The osseous structures are intact. IMPRESSION: 1. No abnormalities of the kidneys or collecting systems. 2. small adherent gallstone or gallbladder polyp.
== END | disposition home or self-care (01) ==
LOC: RADCTMAIN 15:02
PROVIDERS: ATTEND Urology
DX: N13.30 Unspecified hydronephrosis
CPT/HCPCS: 74178; 74400

== ENCOUNTER → 2024-08-27 | Outpatient (CLI) | payer BC ==
--- NOTE | 2024-08-27 09:13 | MM ---
Reason for Exam: Clinical finding. Baseline mammogram. Patient History: Menarche at age 11. First Full-Term at age 19. Hysterectomy at age 27. 2014, Bilateral Implants. Prior Study Comparison: Patient's first Mammogram. No prior studies available for comparison. Tissue Density: The breasts are heterogeneously dense, which may obscure small masses. Findings: Bilateral breast implants appear intact. Silicone implants appear intact around the margins. No new suspicious masses, calcifications or distortions. Overall Assessment: Negative, BI-RAD 1 Management: Screening Mammogram of both breasts in 1 year. Consider MRI for evaluation of the silicone breast implants for rupture which is more sensitive. Results were given to the patient verbally at the time of exam. Patient should continue monthly self-breast exams. A clinical breast exam by your physician is recommended on an annual basis. This exam should not preclude additional follow-up of suspicious palpable abnormalities. Note on Leonora scores and lifetime risk: 1. A Leonora score greater than 3% is considered moderate risk. If this is the case, consider specialist referral to assess eligibility for a risk reducing agent. 2. If overall lifetime risk for the development of breast cancer is 20% or higher, the patient may qualify for future screening with alternating mammogram and breast MRI. [facility], , 08/27/2024 9:06 AM. Electronically signed and approved by: Milind Garcia DO
== END | disposition home or self-care (01) ==
LOC: RADMAMWWP 07:56
PROVIDERS: ATTEND Family Medicine
DX: N64.4 Mastodynia (principal); R92.333 Mammographic heterogeneous density, bilateral breasts; Z98.82 Breast implant status
CPT/HCPCS: 77062; 77066